=== PATIENT | male | born 1975 | race Caucasian/White ===

== ENCOUNTER 2020-07-25 16:16 | Emergency (ER) | payer OTHER, SELFPAY ==
[2020-07-25 16:30] VITALS: BP 137/83; PULSE 62; RESP 65; TEMP 36.9; O2SAT 100
--- NOTE | 2020-07-25 17:31 | ED.BACK ---
HPI - Back Pain/Injury General Chief Complaint: Back Pain/Injury Stated Complaint: TORE UP MY BACK Time Seen by Provider: 07/25/20 16:51 Source: patient Mode of arrival: ambulatory Limitations: no limitations History of Present Illness HPI Narrative: Patient is a 45-year-old male who presents to emergency department for evaluation of low back pain status post lifting boxes and developing low back pain across the lumbar region patient notes aching pain does not radiate made worse with activity and movement denies other complaints has not taken anything for his symptoms Related Data Allergies Allergy/AdvReac Type Severity Reaction Status Date / Time Penicillins Allergy Mild Verified 06/10/17 21:27 Review of Systems Review of Systems: All systems reviewed & are unremarkable except as noted in HPI and below PMFSH Surgical History Surgical History (Updated 07/25/20 @ 17:32 by Chip Roach PA-C) History of tracheostomy Social History Social History (Updated 07/25/20 @ 17:32 by Chip Roach PA-C) Smoking status: Current every day smoker Exam Narrative: Exam Narrative: GENERAL: Well-appearing, well-nourished, and in no acute distress. HEAD: Normocephalic, atraumatic. EYES: PERRLA and EOMI. ENT: Nares clear, no rhinorrhea or epistaxis. Mucous membranes moist. CHEST: Clear to auscultation. No respiratory distress. No wheezes rales or rhonchi HEART: Regular rate and rhythm. No murmur heard. EXTREMITIES: Normal range of motion. No edema. Tenderness across the lumbar spine no deformities noted SKIN: Warm, dry, no rash. NEURO: No focal deficits. Alert and oriented x3. Cranial nerves II through XII grossly intact. Normal speech and gait PSYCH: Normal mood and affect. Course Course Emergency Course: Patient in the room in no distress aware of case findings treatment plan and diagnosis Vital Signs Vital signs: Vital Signs Temperature 98.4 F 07/25/20 16:30 Pulse Rate 62 07/25/20 16:30 Respiratory Rate 65 H 07/25/20 16:30 Blood Pressure 137/83 07/25/20 16:30 Pulse Oximetry 100 07/25/20 16:30 Temperature 98.4 F 07/25/20 16:30 Pulse Rate 62 07/25/20 16:30 Respiratory Rate 65 H 07/25/20 16:30 Blood Pressure 137/83 07/25/20 16:30 Pulse Oximetry 100 07/25/20 16:30 MDM - Back Pain/Injury MDM Narrative Medical decision making narrative: Patients pain is positional in nature and localized to back without signs of cord compression or cauda equina based on neurological exam, skeletal exam and history. No fever or other significant factors to suggest osteomyelitis or spinal epidural abscess. No symptoms or signs to suggest pain is referred from abdominal or / cardiopulmonary sources. No pulsatile masses noted on exam. Patient ambulates with steady gait and is stable for outpatient management given case findings. Discharge Plan Discharge Clinical Impression: Strain of lumbar region Patient Disposition: Home, Self-Care Condition: Stable Instructions: Antibiotic Form, Acute Low Back Pain (ED) Additional Instructions: Medications as needed and prescribed. Limit lifting and bending. You may apply heat or cold to the area as needed. Follow up with your doctor for further care in the next 7 days. Contact your doctor or return to the emergency department if you develop problems with bladder or bowel function, weakness or loss of feeling in one or both of your legs, or any other serious concerns. Prescriptions: New ibuprofen [IBU] 600 mg tablet 600 mg PO QID PRN (Reason: fever or pain) Qty: 7 RF: 0 lidocaine 5 % adhesive patch,medicated 1 patch TOPICAL DAILY Qty: 1 RF: 0 cyclobenzaprine 10 mg tablet 10 mg PO TID PRN (Reason: muscle spasm) Qty: 10 RF: 0 Follow-up/Referrals: Rolly Watkins MD [Primary Care Provider] -
[2020-07-25 17:42] VITALS: PULSE 62; RESP 14
== END 2020-07-25 17:43 | disposition home or self-care (01) ==
PROVIDERS: Emergency Provider Emergency Medicine; PCP Emergency Medicine
DX: S39.012A Strain of muscle, fascia and tendon of lower back, initial encounter (principal); F17.200 Nicotine dependence, unspecified, uncomplicated; X50.0XXA Overexertion from strenuous movement or load, initial encounter
CPT/HCPCS: 99283

== ENCOUNTER 2024-07-31 11:03 | Emergency (ER) | payer SELFPAY ==
--- NOTE | ~2024-07-31 | XR_ITS ---
EXAMINATION: XR forearm LT 2V DATE: 07/31/2024 13:02 INDICATION: Dog bite to the lateral left forearm TECHNIQUE: AP an lateral views of the left forearm were obtained. COMPARISON: none FINDINGS: There is soft tissue swelling about the mid to proximal left forearm. There are several foci of soft tissue gas along the radial and volar aspect of the midforearm and anterior to the elbow joint. This appears relatively superficial on the frontal projection. Bone alignment is normal. No fracture. Join t spaces are normal. No radiopaque foreign bodies. IMPRESSION: 1. Soft tissue gas at the anterior aspect of the mid left forearm and anterior to the elbow. This cou ld be either directly related to the reported dog bite or to secondary infection with necrotizing fas ciitis which is a clinical diagnosis. 2. No osseous abnormality or radiopaque foreign bodies. Reviewed, dictated and finalized at location A. IMPRESSION: 1. Soft tissue gas at the anterior aspect of the mid left forearm and anterior to the elbow. This could be either directly related to the reported dog bite or to secondary infection with necrotizing fasciitis which is a clinical diagnosi s. 2. No osseous abnormality or radiopaque foreign bodies.
[2024-07-31 12:30] VITALS: BP 145/114; PULSE 71; RESP 17; TEMP 36.7; O2SAT 98
--- NOTE | 2024-07-31 14:51 | ED.ANIMALBIT ---
HPI - Animal Bite General Chief Complaint: Animal Bite Stated Complaint: dog bite Time Seen by Provider: 07/31/24 14:26 History of Present Illness HPI narrative: 48-year-old male presents to the emergency department for a dog bite to his left forearm that occurred 3 hours ago. Patient states his dog in his mother's dog or getting into a fight, he attempted to break up the fight and was bit by a dog. He states both dogs are up-to-date on vaccines. His tetanus is up-to-date. Presents with 3 puncture wounds to the left forearm, bleeding is controlled. No other injuries acquired. Related Data Allergies Allergy/AdvReac Type Severity Reaction Status Date / Time Penicillins Allergy Mild Unknown Verified 07/31/24 11:05 Review of Systems Review of Systems: All systems reviewed & are unremarkable except as noted in HPI and below PMFSH Surgical History Surgical History History of tracheostomy Social History Social History Smoking status: Current every day smoker Exam Narrative: GENERAL: Well-appearing, well-nourished, and in no acute distress. HEAD: Normocephalic, atraumatic. ENT: Nares clear, no rhinorrhea or epistaxis. Mucous membranes moist. NECK: Supple. CHEST: Clear to auscultation. No respiratory distress. HEART: Regular rate and rhythm. No murmur heard. Normal peripheral pulses. EXTREMITIES: 2 small puncture wounds to the dorsum of the left forearm without deep structures or foreign bodies visualized, bleeding is controlled. 1 puncture wound to the volar aspect of the forearm Measuring about half a cm with exposed subcutaneous tissue, otherwise no deep structures or foreign bodies visualized. bleeding controlled. Radial pulses 2+. Sensation is Intact. Median, radial and ulnar nerves are intact. SKIN: Warm, dry, no rash. NEURO: No focal deficits. Alert and oriented x3 Course Vital Signs Vital signs: Vital Signs Temperature 98.1 F 07/31/24 12:30 Pulse Rate 71 07/31/24 12:30 Respiratory Rate 17 07/31/24 12:30 Blood Pressure 145/114 H 07/31/24 12:30 Pulse Oximetry 98 07/31/24 12:30 Temperature 98.1 F 07/31/24 12:30 Pulse Rate 71 07/31/24 12:30 Respiratory Rate 17 07/31/24 12:30 Blood Pressure 145/114 H 07/31/24 12:30 Pulse Oximetry 98 07/31/24 12:30 Procedures Laceration Laceration 1: Date: 07/31/24 Time: 15:26 Site: upper extremity Side (If applicable): left Size (cm): 0.3 Description: contaminated and other (puncture) Depth: simple, single layer Pre-repair: wound explored, irrigated and irrigated extensively ====== Skin Level ====== Skin layer closed with: steri strips Number of sutures: 1 ====== Subcutaneous Layer ====== ====== Muscle Layer ====== ====== Tendon Layer ====== Laceration 2: Date: 07/31/24 Time: 15:26 Site: upper extremity Side (If applicable): left Size (cm): 0.3 Description: contaminated and other (Puncture) Depth: simple, single layer Pre-repair: wound explored, irrigated and irrigated extensively ====== Skin Level ====== Skin layer closed with: dermabond Number of sutures: 1 ====== Subcutaneous Layer ====== ====== Muscle Layer ====== ====== Tendon Layer ====== Laceration 3: Date: 07/31/24 Time: 15:27 Site: upper extremity Side (If applicable): left Size (cm): 0.5 Description: other (puncture) Depth: simple, single layer Pre-repair: wound explored, irrigated and irrigated extensively ====== Skin Level ====== Skin layer closed with: dermabond Number of sutures: 1 ====== Subcutaneous Layer ====== ====== Muscle Layer ====== ====== Tendon Layer ====== M
[2024-07-31] MEDS: DOXYCYCLINE HYCLATE 100 MG TABLET PO (15:30)
[2024-07-31 15:35] VITALS: BP 132/80; PULSE 76; RESP 16; TEMP 36.6; O2SAT 100
== END 2024-07-31 15:35 | disposition home or self-care (01) ==
PROVIDERS: Emergency Provider Physician Assistant
DX: S51.852A Open bite of left forearm, initial encounter (principal); W54.0XXA Bitten by dog, initial encounter; F17.200 Nicotine dependence, unspecified, uncomplicated
CPT/HCPCS: 12001; 73090; 99283; A9270

== ENCOUNTER 2025-02-22 06:08 | Emergency (ER) | payer SELFPAY ==
[2025-02-22 06:16] VITALS: BP 147/101; PULSE 94; RESP 20; TEMP 37.1; O2SAT 96
--- NOTE | 2025-02-22 06:24 | ED_ITS ---
HPI - Dental/Oral General Chief complaint: Dental/Oral Stated complaint: right sided facial swelling Time Seen by Provider: 02/22/25 06:11 History of Present Illness HPI Narrative: 49-year-old male presenting to the emergency department for right-sided lower jaw swelling and pain for last month. Patient denies any dental trauma or injury. No tooth pain or sensitivity to ice, heat or sweets. He states that whenever he chews he does have some pain in the right-sided lower of his jaw. Has been taking Tylenol and ibuprofen for the last mall without any relief of symptoms or swelling. Endorses some dryness in his mouth specially in the right side when chewing. No TMJ symptoms. No ear, nose, or throat symptoms. No dental symptoms to his knowledge. He was otherwise in his normal state of health. Related Data Allergies Allergy/AdvReac Type Severity Reaction Status Date / Time Penicillins Allergy Mild Unknown Verified 07/31/24 11:05 Review of Systems Review of Systems: As reviewed above in HPI [facility] Surgical History Surgical History History of tracheostomy Social History Social History Smoking status: Current every day smoker Exam Narrative: GENERAL: [Well-appearing, well-nourished, and in no acute distress.] HEAD: [Normocephalic, atraumatic.] EYES: [PERRLA and EOMI.] ENT: Nares clear, no rhinorrhea or epistaxis. Mucous membranes moist. Right- sided lower jaw swelling with palpable tender salivary duct. No parotid tenderness or inflammation. No overlying skin changes. No lymphadenopathy in the neck. Full range of motion. No trismus or bony jaw tenderness. NECK: Supple. CHEST: Breathing comfortably EXTREMITIES: Normal range of motion. [No edema.] SKIN: Warm, dry, no rash. NEURO: [No focal deficits]. Alert and oriented [x3.] Course Vital Signs Vital signs: Vital Signs Temperature 37.1 C 02/22/25 06:16 Pulse Rate 94 02/22/25 06:16 Respiratory Rate 20 02/22/25 06:16 Blood Pressure 147/101 H 02/22/25 06:16 Pulse Oximetry 96 02/22/25 06:16 Temperature 37.1 C 02/22/25 06:16 Pulse Rate 94 02/22/25 06:16 Respiratory Rate 20 02/22/25 06:16 Blood Pressure 147/101 H 02/22/25 06:16 Pulse Oximetry 96 02/22/25 06:16 MDM - Dental/Oral MDM Narrative Medical decision making narrative: 49-year-old otherwise healthy male presenting to the emergency room with right- sided lower jaw facial pain and swelling. Denies any dental symptoms. Endorses some pain with chewing in the right-sided lower jaw associated with some dryness in his mouth. He has signs and symptoms of sialoadenitis with pain and fullness in the salivary gland distribution on the right lower jaw. No parotid distribution tenderness. No overlying skin changes. No intraoral involvement or tenderness with palpation of the teeth or gum line. No dental disease identified. Patient will be treated with a combination of antibiotics and secretogogues. He was given clindamycin given his allergy to penicillin and instructed on how to treat this on an outpatient basis. He was given referral to ear nose and throat if his symptoms do not improve with conservative management. No indication for laboratory studies or imaging at this time. Patient will return if he has any complications or concerns. Patient expressed understanding of the instructions and safely discharged. Medical Records Attestation: I reviewed the patient's medical records. Discharge Plan Discharge Clinical Impression: Sialoadenitis Patient Disposition: Home Condition: Stable Instructions: Antibiotic Form, Sialoadenitis (ED) Additional Instructions: He have signs and symptoms of site hello denied is which is inflammation versus infection of the salivary duct on the right side of your face. Treatment at this time will be a combination of antibiotics to prevent and treat bacterial infection as well as secreted dogs which take the form of sour candies, lemon juice or anything to help stimulate salivation which you can buy [id number]. Take the prescribed antibiotic as well as Tylenol and ibuprofen for any pain. Follow-up with the hearing aide technician. Return with any emergent concerns. Patient Language: Bulgarian Prescriptions: New clindamycin HCl [Cleocin HCl] 300 mg capsule 300 mg PO Q8H 7 Days Qty: 21 0RF No Action ibuprofen [IBU] 600 mg tablet 600 mg PO QID PRN (Reason: fever or pain) Qty: 7 0RF lidocaine 5 % adhesive patch,medicated 1 patch TOPICAL DAILY Qty: 1 0RF Rx Instructions: leave on most painful area for up to 12 hrs cyclobenzaprine 10 mg tablet 10 mg PO TID PRN (Reason: muscle spasm) Qty: 10 0RF doxycycline monohydrate 100 mg capsule 100 mg PO BID Qty: 14 0RF Follow-up/Referrals: Jose Cardenas MD [Physician] - 1 Week (Sialadenitis) PHYSICIAN,CARE TECH [Primary Care Provider] - Time of Disposition: 06:24
[2025-02-22] MEDS: CLINDAMYCIN HCL 150 MG CAP 300 MG PO (06:32)
== END 2025-02-22 06:38 | disposition home or self-care (01) ==
LOC: ANHED 06:28
PROVIDERS: Emergency Provider Student in an Organized Health Care Education/Training Program
DX: K11.20 Sialoadenitis, unspecified (principal); F17.200 Nicotine dependence, unspecified, uncomplicated
CPT/HCPCS: 99283

== ENCOUNTER 2025-02-25 18:57 | Inpatient (IN) | payer SELFPAY ==
--- NOTE | ~2025-02-25 | CT_ITS ---
EXAMINATION: CT facial bones w con DATE: 02/25/2025 21:09 INDICATION: submandibular swelling . TECHNIQUE: Computed tomography (CT) of the facial bones and maxillofacial region was performed withou t intravenous contrast. Automated exposure control and iterative reconstruction technique were employ ed. The dose-length product was 386.62 mGy-cm. COMPARISON: None. FINDINGS: Soft Tissues: 1.0 x 3.0 cm rim-enhancing fluid collection along the medial surface of the right lucian ible, with a 7 mm diameter, rim-enhancing tubular extension running medially in the submandibular sof t tissues. Normal bilateral submandibular glands. Enlarged submandibular lymph node to the right of m idline with a hypodense center. Facial bones: No acute fracture. No lytic or blastic process. The bilateral mandibular condyles are dislocated anteriorly, with pseudoarthrosis formation Eyes: The globes are intact. The soft tissue planes of the orbits are maintained. Paranasal Sinuses: Mild bilateral inferior frontal and ethmoid mucosal thickening, the remaining aer ated spaces are clear. Foreign Bodies: No radiopaque foreign bodies. Other Findings: Multifocal dental caries. Periodontal disease affecting a left mandibular molar. Left frontotemporal encephalomalacia. IMPRESSION: 1.0 x 3.0 cm soft tissue abscess along the medial aspect of the right mandible, with extension into t he submandibular/sublingual soft tissues. No definite cortical breakthrough to suggest odontogenic or igin. Enlarged submandibular gland to the right of midline, with a hypodense center that may also represent a small focal abscess. 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 Reviewed, dictated and finalized at location K. IMPRESSION: 1.0 x 3.0 cm soft tissue abscess along the medial aspect of the right mandible, with extension into the submandibular/sublingual soft tissues. No definite cor tical breakthrough to suggest odontogenic origin. Enlarged submandibular gland to the right of midline, with a hypodense center t hat may also represent a small focal abscess. Incidental findings suggestive of chronic mandibular dislocation with pseudarth rosis.
[2025-02-25 18:59] VITALS: BP 140/95; PULSE 83; RESP 18; TEMP 36.5; O2SAT 99
[2025-02-25] MEDS: SODIUM CHLORIDE 0.9% IV 1,000 ML 999 ML IV CONT (20:26)
[2025-02-25 20:30] VITALS: PULSE 73
[2025-02-25 20:34] LABS: Basophils Absolute Auto 0.1 K/mm3 (0.0-0.1); Basophils Percent Auto 0.6 % (0.2-1.2); Eosinophils Absolute Auto 0.1 K/mm3 (0-0.3); Eosinophils Percent Auto 0.7 % (0-4.4); Hematocrit 46.7 % (42.0-52.0); Hemoglobin 15.4 g/dL (14.0-18.0); Immature Granulocyte Absolute 0.05 K/mm3 (0.00-0.031); Immature Granulocyte Percent A 0.4 % (0-0.5); Lymphocytes Absolute Auto 1.24 K/mm3 (0.9-3.2); Mean Corpuscular Hemoglobin 31.8 pg (26-34); Mean Corpuscular Volume 96.3 fl (80-100); Mean Platelet Volume 9.9 fl (7.4-10.4); Monocytes Absolute Auto 1.3 K/mm3 (0.1-0.6); Monocytes Percent Auto 10.4 % (2.6-8.5); Neutrophils Absolute Auto 9.7 K/mm3 (1.3-6.7); Neutrophils Percent Auto 77.9 % (45.5-73.1); Platelet Count Result 388 k/mm3 (150-375); Red Blood Count 4.85 M/mm3 (4.6-6.20); Red Cell Distribution Width 13.2 % (11.5-14.5); White Blood Count 12.4 K/mm3 (4.5-10.0)
[2025-02-25 20:42] LABS: Alanine Aminotransferase 31 U/L (6-50); Albumin Level 4.4 g/dL (3.5-5.1); Alkaline Phosphatase 80 U/L (38-126); Anion Gap 10 mmol/L (4-12); Aspartate Amino Transferase 31 U/L (17-59); Bilirubin,Total 0.4 mg/dL (0.2-1.3); Blood Urea Nitrogen 16 mg/dL (9-20); Calcium 9.5 mg/dL (8.4-10.2); Carbon Dioxide 26 mmol/L (22-30); Chloride 109 mmol/L (98-107); Estimated Glomerular Filt Rate > 60; Glucose 100 mg/dL (65-110); Potassium 3.9 mmol/L (3.4-5.0); Sodium 145 mmol/L (137-145)
--- NOTE | 2025-02-25 21:42 | ED_ITS ---
HPI - General Adult General Chief complaint: Unspecified Stated complaint: jaw pain seen here 3 days ago Time Seen by Provider: 02/25/25 19:56 History of Present Illness HPI narrative: Patient is a 49-year-old gentleman who presents emergency department chief complaint of swelling to the right lower mandible patient states he was seen in the emergency department several days ago and diagnosed with solid itis. Patient has been taking oral antibiotics without improvement patient states it is exquisitely painful and reports the swelling has gotten worse patient denies shortness of breath denies stridor Related Data Allergies Allergy/AdvReac Type Severity Reaction Status Date / Time Penicillins Allergy Mild Unknown Verified 02/25/25 18:58 Review of Systems 2 Review of Systems: A 10 system review of systems was completed on the patient and is negative except for what is stated in the HPI. Nursing and ancillary documentation was reviewed. [facility] Surgical History Surgical History History of tracheostomy Social History Social History Smoking status: Current every day smoker Exam 2 Narrative: GENERAL: Well-appearing, well-nourished, and in no acute distress. HEAD: Normocephalic, atraumatic. EYES: PERRLA and EOMI. ENT: Nares clear, no rhinorrhea or epistaxis. Mucous membranes moist. The swelling in the submandibular area there is tenderness in the sublingual area on the right side there is no crepitance or fluctuance there NECK: Supple. CHEST: Clear to auscultation. No respiratory distress. HEART: Regular rate and rhythm. No murmur heard. Normal peripheral pulses. ABDOMEN: Soft, nontender, nondistended, normal active bowel sounds. EXTREMITIES: Normal range of motion. No edema. SKIN: Warm, dry, no rash. NEURO: No focal deficits. Alert and oriented x3. PSYCH: Normal mood and affect. Course Vital Signs Vital signs: Vital Signs Temperature 36.5 C 02/25/25 18:59 Pulse Rate 83 02/25/25 18:59 Respiratory Rate 18 02/25/25 18:59 Blood Pressure 140/95 H 02/25/25 18:59 Pulse Oximetry 99 02/25/25 18:59 Oxygen Delivery Room Air 02/25/25 18:59 Temperature 36.5 C 02/25/25 18:59 Pulse Rate 73 02/25/25 20:30 Respiratory Rate 18 02/25/25 18:59 Blood Pressure 140/95 H 02/25/25 18:59 Pulse Oximetry 99 02/25/25 18:59 Oxygen Delivery Room Air 02/25/25 18:59 Medical Decision Making MDM Narrative Medical decision making narrative: Differential diagnosis includes abscess, sialadenitis, trench mouth, Federico's angina There is no crepitance present on exam. Patient has an intact airway CT scan of the facial bones with IV contrast showed evidence of a 1 x 3 cm abscess the patient was started on vancomycin and IV clindamycin as he is allergic to penicillin The case was discussed with ENT who recommended IV antibiotics and admission to the hospitalist service and the patient has no improvement may need incision and drainage Vital Signs Vital Signs: Vital Signs Temperature 36.5 C 02/25/25 18:59 Pulse Rate 83 02/25/25 18:59 Respiratory Rate 18 02/25/25 18:59 Blood Pressure 140/95 H 02/25/25 18:59 Pulse Oximetry 99 02/25/25 18:59 Oxygen Delivery Room Air 02/25/25 18:59 Temperature 36.5 C 02/25/25 18:59 Pulse Rate 73 02/25/25 20:30 Respiratory Rate 18 02/25/25 18:59 Blood Pressure 140/95 H 02/25/25 18:59 Pulse Oximetry 99 02/25/25 18:59 Oxygen Delivery Room Air 02/25/25 18:59 Lab Data 02/25/25 20:25 02/25/25 20:25 Labs: Lab Results 02/25/25 Range/Units 20:25 WBC 12.4 H (4.5-10.0) K/mm3 RBC 4.85 (4.6-6.20) M/mm3 Hgb 15.4 (14.0-18.0) g/dL Hct 46.7 (42.0-52.0) % MCV 96.3 (80-100) fl MCH 31.8 (26-34) pg MCHC 33.0 (32-36) g/dl RDW 13.2 (11.5-14.5) % Plt Count 388 H (150-375) k/mm3 MPV 9.9 (7.4-10.4) fl Immature Gran % (Auto) 0.4 (0-0.5) % Neut % (Auto) 77.9 H (45.5-73.1) % Lymph % (Auto) 10.0 L (18.3-44.2) % Page % (Auto) 10.4 H (2.6-8.5) % Eos % (Auto) 0.7 (0-4.4) % Baso % (Auto) 0.6 (0.2-1.2) % Lymph # (Auto) 1.24 (0.9-3.2) K/mm3 Page # (Auto) 1.3 H (0.1-0.6) K/mm3 Eos # (Auto) 0.1 (0-0.3) K/mm3 Baso # (Auto) 0.1 (0.0-0.1) K/mm3 Abs Immat Gran (auto) 0.05 H (0.00-0.031) K/mm3 Absolute Neuts (auto) 9.7 H (1.3-6.7) K/mm3 Absolute Nucleated RBC 0.000 (0.0-0.012) K/mm3 Nucleated RBC % 0.0 (0.0-0.2) % Sodium 145 (137-145) mmol/L Potassium 3.9 (3.4-5.0) mmol/L Chloride 109 H (98-107) mmol/L Carbon Dioxide 26 (22-30) mmol/L Anion Gap 10 (4-12) mmol/L BUN 16 (9-20) mg/dL Creatinine 0.92 (0.7-1.3) mg/dL Estim Creat Clear Calc Not Reportable Estimated GFR > 60 (59 - ) Glucose 100 (65-110) mg/dL Lactic Acid 1.0 (0.7-2.0) mmol/L Calcium 9.5 (8.4-10.2) mg/dL Total Bilirubin 0.4 (0.2-1.3) mg/dL AST 31 (17-59) U/L ALT 31 (6-50) U/L Alkaline Phosphatase 80 (38-126) U/L Total Protein 8.0 (6.3-8.2) g/dL Albumin 4.4 (3.5-5.1) g/dL Discharge Plan Discharge Clinical Impression: Abscess of submandibular gland Patient Disposition: Still a Patient Condition: Stable Patient Language: [place] African Prescriptions: No Action ibuprofen [IBU] 600 mg tablet 600 mg PO QID PRN (Reason: fever or pain) Qty: 7 0RF lidocaine 5 % adhesive patch,medicated 1 patch TOPICAL DAILY Qty: 1 0RF Rx Instructions: leave on most painful area for up to 12 hrs cyclobenzaprine 10 mg tablet 10 mg PO TID PRN (Reason: muscle spasm) Qty: 10 0RF doxycycline monohydrate 100 mg capsule 100 mg PO BID Qty: 14 0RF clindamycin HCl [Cleocin HCl] 300 mg capsule 300 mg PO Q8H 7 Days Qty: 21 0RF Follow-up/Referrals: PHYSICIAN,TOWER EQUIPMENT INSTALLER [Primary Care Provider] - Time of Disposition: 21:50
--- NOTE | 2025-02-25 21:53 | PC.NURSE ---
contacted pharmacy to request abx. [facility] aware and will send.
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
[2025-02-25 22:14] VITALS: BP 151/90; PULSE 90; RESP 16; TEMP 37.4; O2SAT 97
[2025-02-25] MEDS: CLINDAMYCIN 900 MG/D5W 50 ML 900 MG/50 ML PIGGYBACK 50 MG IVPB (22:35)
--- NOTE | 2025-02-25 22:35 | PC.NURSE ---
blood cultures drawn prior to abx started by mattie Franco
[2025-02-25 22:55] VITALS: BMI 23.5
[2025-02-25] MEDS: SODIUM CHLORIDE 0.9% IV 1,000 ML 125 ML IV CONT (23:06)
[2025-02-25] MEDS: MORPHINE SULFATE (*CRX) 2 MG/ML INJ IV PUSH (23:15)
[2025-02-25] MEDS: VANCOMYCIN 1,750 MG/NS 500 ML 1,750 MG/500 ML BAG 250 MG IVPB (23:21)
[2025-02-25] MEDS: NICOTINE (*PBKC) 21 MG PATCH 1 PATCH TRANSDERM (23:53)
[2025-02-26] VITALS (12 sets, daily range): BP systolic 131–149; BP diastolic 72–91; PULSE 70–90; RESP 16–20; TEMP 36–37.1; O2SAT 94–100
[2025-02-26] MEDS: dexAMETHasone SOD PHOS INJ 10 MG/ML 1 ML VIAL IV PUSH (01:00)
[2025-02-26] MEDS: IPRATROPIUM 0.5 MG/ALBUTEROL SULFATE 2.5 MG AMPUL.NEB 3 ML INHALATION ×4 (01:48→20:47)
[2025-02-26] MEDS: CLINDAMYCIN 600 MG/D5W 50 ML 600 MG/50 ML PIGGYBACK 100 MG IVPB (05:34)
[2025-02-26 06:22] LABS: Basophils Percent Auto 0.3 % (0.2-1.2); Eosinophils Percent Auto 0.1 % (0-4.4); Hematocrit 46.5 % (42.0-52.0); Hemoglobin 14.9 g/dL (14.0-18.0); Immature Granulocyte Absolute 0.06 K/mm3 (0.00-0.031); Immature Granulocyte Percent A 0.5 % (0-0.5); Lymphocytes Absolute Auto 0.61 K/mm3 (0.9-3.2); Lymphocytes Percent Auto 5.5 % (18.3-44.2); Mean Corpuscular Hemoglobin 31.6 pg (26-34); Mean Corpuscular Volume 98.5 fl (80-100); Mean Platelet Volume 10.4 fl (7.4-10.4); Monocytes Absolute Auto 0.2 K/mm3 (0.1-0.6); Monocytes Percent Auto 1.4 % (2.6-8.5); Neutrophils Absolute Auto 10.3 K/mm3 (1.3-6.7); Neutrophils Percent Auto 92.2 % (45.5-73.1); Platelet Count Result 376 k/mm3 (150-375); Red Blood Count 4.72 M/mm3 (4.6-6.20); Red Cell Distribution Width 13.2 % (11.5-14.5); White Blood Count 11.1 K/mm3 (4.5-10.0)
[2025-02-26 06:37] LABS: Lactic Acid Reflex 1.1 mmol/L (0.7-2.0)
[2025-02-26 06:38] LABS: Anion Gap 11 mmol/L (4-12); Blood Urea Nitrogen 11 mg/dL (9-20); Calcium 8.8 mg/dL (8.4-10.2); Carbon Dioxide 20 mmol/L (22-30); Chloride 112 mmol/L (98-107); Estimated CRCL calculation 95 ml/min; Estimated Glomerular Filt Rate > 60; Glucose 117 mg/dL (65-110); Potassium 3.8 mmol/L (3.4-5.0); Sodium 143 mmol/L (137-145)
[2025-02-26] MEDS: NICOTINE (*PBKC) 21 MG PATCH 1 PATCH TRANSDERM (08:16)
[2025-02-26] MEDS: LIDO 1%/EPINEPHRINE 1:100,000 20 ML VIAL 3 ML INFILTRATE (09:26)
[2025-02-26] MEDS: BENZOCAINE 20% DENTAL GEL 9 GM TUBE 1 APPLIC MUCOUS MEM (09:26)
[2025-02-26 09:28] LABS: CRP 6.8 mg/dL (<1.0)
--- NOTE | 2025-02-26 09:50 | P.PNIM_ITS ---
Progress Note: A&P Assessment and Plan (1) Abscess of submandibular gland: Code(s): K11.3 - Abscess of salivary gland Status: Acute Assessment and Plan: * Patient failed outpatient clindamycin therapy. * Patient is not meeting sepsis criteria. * CT scan facial bones showing 1 cm x 3 cm soft tissue abscess along right mandible extending into the submandibular soft tissues. * IV antibiotics of clindamycin 600 mg Q 8 hours and vancomycin as dosed per pharmacy ordered. * Consult ENT has been placed. * P.r.n. pain medication with morphine 2 mg Q 2 p.r.n., Tylenol q.4 p.r.n. and antiemetics of Zofran Q 4 p.r.n. ordered. (2) Emphysema lung: Code(s): J43.9 - Emphysema, unspecified Status: Chronic Assessment and Plan: * Patient without any current treatment as he does not have insurance. * continue bronchodilators (3) Nicotine dependence: Code(s): F17.200 - Nicotine dependence, unspecified, uncomplicated Status: Chronic Assessment and Plan: * patient counseled for 5 minutes regarding nicotine cessation to allow for healing * nicotine patch ordered Plan DVT prophylaxis on Sq Lovenox Subjective Date/time seen: 02/26/25 09:50 Interval history: Comfortable at bedside Awaiting ENT eval Review of Systems Review of Systems: All systems reviewed & are unremarkable except as noted in HPI and below Exam Const: General: comfortable and no acute distress Other: Comfortable and nontoxic appearing male patient lying supine on stretcher at this time in no acute distress. HENMT: Face/Nose/Sinus: Normal nares present Mouth: Yes moist mucous membranes Other: Poor dental hygiene evident. There are no signs however of intraoral abscess, erythema or lesion. Neck: Neck: supple and no JVD Lymphatic: lymphadenopathy not noted Other: I am unable to appreciate any submandibular or cervical lymphadenopathy. Resp: Effort & Inspection: normal respiratory effort Auscultation: wheezes ( Expiratory and expiratory wheezing in all mckinley) Other: prolonged expiratory phase present. Cardio: Rate: regular rate Rhythm: regular rhythm Heart sounds: no gallops, no murmurs and no rubs GI: Auscultation: normal bowel sounds Skin: General skin exam: normal color, no rashes or lesions noted and no erythema Wounds: no wounds Neuro: General: gait normal Speech: normal speech Motor exam (neuro): 5/5 motor strength present throughout Sensory Exam: normal sensation Extrem: General: normal to inspection, no edema and no pedal edema Other: Full active range of motion of all extremities. Psych: Mental Status: mental status grossly normal Objective Data Vital Signs Vital Signs: Vital Signs - 24 hr 02/25/25 18:59 02/25/25 20:30 02/25/25 22:14 Temperature 97.7 F 99.4 F Pulse Rate 83 73 90 Respiratory Rate 18 16 Blood Pressure 140/95 H 151/90 H Pulse Oximetry 99 97 Oxygen Delivery Room Air Fraction of Inspired Oxygen 02/26/25 01:16 02/26/25 01:53 02/26/25 06:00 Temperature 98.8 F Pulse Rate 90 85 89 Respiratory Rate 16 20 18 Blood Pressure 145/72 H Pulse Oximetry 97 100 Oxygen Delivery Room Air Fraction of Inspired Oxygen 02/26/25 07:43 02/26/25 07:43 02/26/25 07:50 Temperature Pulse Rate 78 81 Respiratory Rate 20 20 Blood Pressure Pulse Oximetry 94 Oxygen Delivery Room Air Fraction of Inspired Oxygen 21 Intake/Output Intake/Output: Intake & Output 02/23/25 02/24/25 02/25/25 02/26/25 23:59 23:59 23:59 23:59 Intake Total 1050 1550 Balance 1050 1550 Meds/Results Medications: Active Medications Generic Name Dose Route Start Last Admin Trade Name Freq PRN Reason Stop Dose Admin Acetaminophen 650 mg 02/25/25 21:50 Acetaminophen 325 Mg Tablet PO Q4H PRN Mild Pain (1-3) or Fever Albuterol 2.5 mg 02/25/25 22:21 Albuterol Sulfate Neb 2.5 Mg/3 Ml Inh INHALATION Q4HRT PRN Wheezing Albuterol/Ipratropium 3 ml 02/26/25 02:00 02/26/25 07:43 Ipratropium 0.5 Mg/Albuterol Sulfate 2.5 Mg Ampul.Neb 3 Ml INHALATION 3 ml Q6HRT AGUSTIN Administration Sodium Chloride 1,000 mls @ 125 mls/hr 02/25/25 21:50 02/26/25 08:41 Normal Saline Iv IV CONT Infused .Q8H AGUSTIN Infusion Vancomycin HCl 1,250 mg in 250 mls @ 166.667 mls/hr 02/26/25 11:00 Vancomycin 1,250 Mg/Ns 250 Ml IVPB Q12H AGUSTIN Clindamycin Phosphate 900 mg in 50 mls @ 50 mls/hr 02/26/25 14:00 Cleocin 900 Mg/D5w 50 Ml IVPB Q8H AGUSTIN Morphine Sulfate 2 mg 02/25/25 21:50 02/25/25 23:15 Morphine Sulfate (*Crx) 2 Mg/Ml Inj IV PUSH 2 mg Q2H PRN Administration Pain Rated 7-10 Nicotine 1 patch 02/26/25 09:00 02/26/25 08:16 Nicotine (*Pbkc) 21 Mg Patch TRANSDERM 1 patch DAILY AGUSTIN Administration Ondansetron HCl 4 mg 02/25/25 21:50 Ondansetron Inj 4 Mg/2 Ml Vial IV PUSH Q4H PRN Nausea Radiology Results: ITS Impressions Face CT 02/25/25 21:16 IMPRESSION: 1.0 x 3.0 cm soft tissue abscess along the medial aspect of the right mandible, with extension into the submandibular/sublingual soft tissues. No definite cortical breakthrough to suggest odontogenic origin. Enlarged submandibular gland to the right of midline, with a hypodense center that may also represent a small focal abscess. 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 Labs Labs: Laboratory Results - last 24 hr 02/25/25 02/26/25 20:25 05:34 WBC 12.4 H 11.1 H RBC 4.85 4.72 Hgb 15.4 14.9 Hct 46.7 46.5 MCV 96.3 98.5 MCH 31.8 31.6 MCHC 33.0 32.0 RDW 13.2 13.2 Plt Count 388 H 376 H MPV 9.9 10.4 Immature Gran % (Auto) 0.4 0.5 Neut % (Auto) 77.9 H 92.2 H Lymph % (Auto) 10.0 L 5.5 L Cannon % (Auto) 10.4 H 1.4 L Eos % (Auto) 0.7 0.1 Baso % (Auto) 0.6 0.3 Lymph # (Auto) 1.24 0.61 L Cannon # (Auto) 1.3 H 0.2 Eos # (Auto) 0.1 0.0 Baso # (Auto) 0.1 0.0 Abs Immat Gran (auto) 0.05 H 0.06 H Absolute Neuts (auto) 9.7 H 10.3 H Absolute Nucleated RBC 0.000 0.000 Nucleated RBC % 0.0 0.0 Sodium 145 143 Potassium 3.9 3.8 Chloride 109 H 112 H Carbon Dioxide 26 20 L Anion Gap 10 11 BUN 16 11 D Creatinine 0.92 0.77 Estim Creat Clear Calc Not Reportable 95 Estimated GFR > 60 > 60 Glucose 100 117 H Lactic Acid 1.0 1.1 Calcium 9.5 8.8 Total Bilirubin 0.4 AST 31 ALT 31 Alkaline Phosphatase 80 C-Reactive Protein 6.8 H Total Protein 8.0 Albumin 4.4 Quality VTE Prophylaxis VTE prophylaxis: mechanical ordered
[2025-02-26] MEDS: SODIUM CHLORIDE 0.9% IV 1,000 ML 125 ML IV CONT (09:53)
[2025-02-26] MEDS: MORPHINE SULFATE (*CRX) 2 MG/ML INJ IV PUSH ×2 (09:53→15:41)
--- NOTE | 2025-02-26 10:21 | P.CONS_ITS ---
Assessment and Plan Assessment and plan (1) Neck abscess: Code(s): L02.11 - Cutaneous abscess of neck Status: Acute (2) Abscess of submandibular gland: Code(s): K11.3 - Abscess of salivary gland Status: Acute (3) Abscess, periapical: Code(s): K04.7 - Periapical abscess without sinus Status: Acute (4) Dental infection: Code(s): K04.7 - Periapical abscess without sinus Status: Acute (5) Abscess or cellulitis, oral soft tissue: Code(s): K12.2 - Cellulitis and abscess of mouth Status: Acute Plan 49-year-old male with right-sided submandibular abscess, right side floor of mouth abscess, right side periapical abscess -incision and drainage through the mouth was done. -culture swab was taken for aerobic. -continue antibiotics including clindamycin 900 mg IV t.i.d.. -if there is no improvement in symptoms clinically or persistently elevated white blood cell count and CRP then we will order another CT scan neck with contrast in 48 hours -I will re-evaluate the patient tomorrow afternoon(02/27/25) HPI Data of Consult Date/Time: 02/26/25 10:21 Requesting Physician: Kendall Andrews MD Primary Care Provider: [employer] PHYSICIAN Consult Narrative Reason for consult: Right neck abcess Narrative: Arjun Burgess is a 49 year old male admitted for chief complaint of right neck abscess Patient was seen in bed and had right side tender neck ,but is able to open the mouth freely without restriction . Patient has been taking oral antibiotics without improvement before admission. Review of Systems 2 Review of Systems: Patient has mild pain in the right upper neck Patient denies having any bad teeth. Patient has no insurance and has not seen dentist since many years. Patient never complained of any problem recently. All systems reviewed & are unremarkable except as noted in HPI and below Constitutional: Constitutional: Reports as per HPI Eyes: Eyes: Reports as per HPI ENT: Reports system reviewed and no additional complaints, except as documented and Reports as per HPI Respiratory: Respiratory: Reports as per HPI Gastrointestinal: Gastrointestinal: Reports as per HPI [facility] Past Medical History Medical History (Updated 02/26/25 @ 15:45 by Yuly Go MD) Abscess or cellulitis, oral soft tissue Dental infection Nicotine dependence Emphysema lung Surgical History Surgical History History of tracheostomy Social History Social History Smoking status: Current every day smoker Tobacco type: cigarettes Second hand tobacco smoke exposure: No Alcohol intake: former Substance use: current Substance use type: marijuana Do You Feel Safe in your Home?: Yes Lack of Transportation: No Lack of Food: Never True Current Housing: I Have Housing Concerned About Future Housing: No Difficulty Paying Gas/Electric Bills: No Difficulty Paying for Meds: No Currently Unemployed: No Education: Grade School Difficulty w/ Childcare or Family Care: No Spiritual care concerns: No Meds Home Medications and Allergies Home Medications ?Medication ?Instructions ?Recorded ?Confirmed ?Type cyclobenzaprine 10 mg tablet 10 mg PO TID PRN muscle spasm #10 07/25/20 02/26/25 Rx tabs ibuprofen 600 mg tablet (IBU) 600 mg PO QID PRN fever or pain #7 07/25/20 02/26/25 Rx tabs lidocaine 5 % topical patch 1 patch topical DAILY #1 ea 07/25/20 02/26/25 Rx clindamycin HCl 300 mg capsule 300 mg PO Q8H 7 days #21 caps 02/22/25 02/26/25 Rx (Cleocin HCl) Allergies Allergy/AdvReac Type Severity Reaction Status Date / Time Penicillins Allergy Mild Unknown Verified 02/25/25 18:58 Vital Signs Vital Signs - 24 hr 02/25/25 18:59 02/25/25 20:30 02/25/25 22:14 Temperature 36.5 C 37.4 C Pulse Rate 83 73 90 Respiratory Rate 18 16 Blood Pressure 140/95 H 151/90 H Pulse Oximetry 99 97 Oxygen Delivery Room Air Fraction of Inspired Oxygen 02/26/25 01:16 02/26/25 01:53 02/26/25 06:00 Temperature 37.1 C Pulse Rate 90 85 89 Respiratory Rate 16 20 18 Blood Pressure 145/72 H Pulse Oximetry 97 100 Oxygen Delivery Room Air Fraction of Inspired Oxygen 02/26/25 07:43 02/26/25 07:43 02/26/25 07:50 Temperature Pulse Rate 78 81 Respiratory Rate 20 20 Blood Pressure Pulse Oximetry 94 Oxygen Delivery Room Air Fraction of Inspired Oxygen 21 Exam 2 Const: General: cooperative and healthy appearing HENMT: Head: normal to inspection, normocephalic and atraumatic Head images: 1. Right-sided upper neck tenderness Ears: external ears normal and EAC's normal Face/Nose/Sinus: Normal external nose present and Normal nares present Face and sinus: normal facial exam M outh: Yes lip normal and Yes other Teeth and gingiva: abnormal tooth and associated gingiva Teeth image: 1. Pus with swelling of the gum over the first molar Throat: posterior oropharynx normal Eyes: General: appearance normal, both eyes and all related structures Neck: Neck: normal visual inspection Resp: Effort & Inspection: normal respiratory effort and able to speak in complete sentences Results Labs 02/26/25 05:34 02/26/25 05:34 Labs: Short CBC 02/25/25 02/26/25 Range/Units 20:25 05:34 WBC 12.4 H 11.1 H (4.5-10.0) K/mm3 Hgb 15.4 14.9 (14.0-18.0) g/dL Hct 46.7 46.5 (42.0-52.0) % Plt Count 388 H 376 H (150-375) k/mm3 BMP 02/25/25 02/26/25 20:25 05:34 Sodium 145 143 Potassium 3.9 3.8 Chloride 109 H 112 H Carbon Dioxide 26 20 L BUN 16 11 D Creatinine 0.92 0.77 Glucose 100 117 H Calcium 9.5 8.8 Liver Function 02/25/25 Range/Units 20:25 Total Bilirubin 0.4 (0.2-1.3) mg/dL AST 31 (17-59) U/L ALT 31 (6-50) U/L Alkaline Phosphatase 80 (38-126) U/L Albumin 4.4 (3.5-5.1) g/dL
--- NOTE | 2025-02-26 10:42 | W.PM.PROC2 ---
Procedure Note - Detailed Date of Procedure 02/26/25 Pre-op Diagnosis Floor of mouth abcess Post-op Diagnosis Same Procedure Performed Incision and drainage of floor of mouth abscess under local anesthesia bedside Surgeon Yuly Go MD Anesthesia Local (1% lidocaine with epinephrine 2 mL was injected) Indications Abscess of floor of mouth Description of Procedure After getting written consent of the patient and explaining the risks of the procedure, I have injected 1 mL in the neighboring area the gum of the right lower first molar tooth and the floor of mouth . #15 blade was used to incise the gum and neighboring mucosa ,I dissected over periosteum, bimanual massage of the gland I got around 2 mL of pus that was sent for culture. Estimated Blood Loss 1 (ml) Drains No Packing No Complications None Condition Stable Disposition No change [facility] Billing Surgery - Charge Forward: Surgery Billing (CPT Code 94836)
[2025-02-26] MEDS: VANCOMYCIN 1,250 MG/NS 250 ML 1,250 MG/250 ML BAG 166.67 MG IVPB ×2 (12:08→23:42)
[2025-02-26] MEDS: CLINDAMYCIN 900 MG/D5W 50 ML 900 MG/50 ML PIGGYBACK 50 MG IVPB ×2 (14:47→22:28)
[2025-02-27] VITALS (14 sets, daily range): BP systolic 125–147; BP diastolic 79–88; PULSE 68–90; RESP 16–20; TEMP 36.1–36.9; O2SAT 96–100
[2025-02-27] MEDS: SODIUM CHLORIDE 0.9% IV 1,000 ML 125 ML IV CONT ×3 (00:03→20:26)
[2025-02-27] MEDS: MORPHINE SULFATE (*CRX) 2 MG/ML INJ IV PUSH ×4 (00:04→17:19)
[2025-02-27] MEDS: IPRATROPIUM 0.5 MG/ALBUTEROL SULFATE 2.5 MG AMPUL.NEB 3 ML INHALATION ×4 (02:16→20:36)
[2025-02-27] MEDS: CLINDAMYCIN 900 MG/D5W 50 ML 900 MG/50 ML PIGGYBACK 50 MG IVPB ×3 (06:06→22:11)
[2025-02-27 06:07] LABS: Basophils Percent Auto 0.4 % (0.2-1.2); Eosinophils Absolute Auto 0.1 K/mm3 (0-0.3); Eosinophils Percent Auto 0.9 % (0-4.4); Hematocrit 38.3 % (42.0-52.0); Hemoglobin 12.9 g/dL (14.0-18.0); Immature Granulocyte Absolute 0.03 K/mm3 (0.00-0.031); Immature Granulocyte Percent A 0.3 % (0-0.5); Lymphocytes Absolute Auto 2.53 K/mm3 (0.9-3.2); Lymphocytes Percent Auto 27.8 % (18.3-44.2); Mean Corpuscular HGB Conc 33.7 g/dl (32-36); Mean Corpuscular Hemoglobin 31.9 pg (26-34); Mean Corpuscular Volume 94.8 fl (80-100); Mean Platelet Volume 10.3 fl (7.4-10.4); Monocytes Absolute Auto 0.8 K/mm3 (0.1-0.6); Monocytes Percent Auto 8.2 % (2.6-8.5); Neutrophils Absolute Auto 5.7 K/mm3 (1.3-6.7); Neutrophils Percent Auto 62.4 % (45.5-73.1); Platelet Count Result 369 k/mm3 (150-375); Red Blood Count 4.04 M/mm3 (4.6-6.20); Red Cell Distribution Width 13.5 % (11.5-14.5); White Blood Count 9.1 K/mm3 (4.5-10.0)
[2025-02-27 06:32] LABS: Alanine Aminotransferase 21 U/L (6-50); Albumin Level 3.4 g/dL (3.5-5.1); Alkaline Phosphatase 59 U/L (38-126); Anion Gap 7 mmol/L (4-12); Aspartate Amino Transferase 21 U/L (17-59); Bilirubin,Total 0.5 mg/dL (0.2-1.3); Blood Urea Nitrogen 14 mg/dL (9-20); CRP 3.7 mg/dL (<1.0); Calcium 8.2 mg/dL (8.4-10.2); Carbon Dioxide 23 mmol/L (22-30); Chloride 113 mmol/L (98-107); Estimated CRCL calculation 100 ml/min; Estimated Glomerular Filt Rate > 60; Glucose 84 mg/dL (65-110); Sodium 143 mmol/L (137-145)
[2025-02-27] MEDS: ACETAMINOPHEN 325 MG TABLET 650 MG PO (08:16)
[2025-02-27] MEDS: NICOTINE (*PBKC) 21 MG PATCH 1 PATCH TRANSDERM (08:18)
[2025-02-27 10:36] LABS: Vancomycin Trough 10.1 ug/mL (10.0-20.0)
[2025-02-27] MEDS: VANCOMYCIN 1,750 MG/NS 500 ML 1,750 MG/500 ML BAG 250 MG IVPB ×2 (11:20→23:21)
[2025-02-27] MEDS: POTASSIUM CHLORIDE 20 MEQ ER TABLET 40 MEQ PO (11:21)
--- NOTE | 2025-02-27 13:01 | P.PNIM_ITS ---
Progress Note: A&P Assessment and Plan (1) Abscess of submandibular gland: Code(s): K11.3 - Abscess of salivary gland Status: Acute Assessment and Plan: * CT scan facial bones showing 1 cm x 3 cm soft tissue abscess along right mandible extending into the submandibular soft tissues. * IV antibiotics of clindamycin 600 mg Q 8 hours and vancomycin as dosed per pharmacy ordered. s/p I and D Awaiting culture PRN pain control PRN pain control (2) Emphysema lung: Code(s): J43.9 - Emphysema, unspecified Status: Chronic Assessment and Plan: * Patient without any current treatment as he does not have insurance. * continue bronchodilators (3) Nicotine dependence: Code(s): F17.200 - Nicotine dependence, unspecified, uncomplicated Status: Chronic Assessment and Plan: * patient counseled for 5 minutes regarding nicotine cessation to allow for healing * nicotine patch Plan DVT prophylaxis on Sq Lovenox Subjective Date/time seen: 02/27/25 13:01 Interval history: Comfortable at bedside S/p I and D, culture pending Review of Systems Review of Systems: All systems reviewed & are unremarkable except as noted in HPI and below Exam Const: General: comfortable and no acute distress Other: Comfortable and nontoxic appearing male patient lying supine on stretcher at this time in no acute distress. HENMT: Face/Nose/Sinus: Normal nares present Mouth: Yes moist mucous membranes Other: Poor dental hygiene evident. There are no signs however of intraoral abscess, erythema or lesion. Neck: Neck: supple and no JVD Lymphatic: lymphadenopathy not noted Other: I am unable to appreciate any submandibular or cervical lymphadenopathy. Resp: Effort & Inspection: normal respiratory effort Auscultation: wheezes ( Expiratory and expiratory wheezing in all mckin[place]) Other: prolonged expiratory phase present. Cardio: Rate: regular rate Rhythm: regular rhythm Heart sounds: no gallops, no murmurs and no rubs GI: Auscultation: normal bowel sounds Skin: General skin exam: normal color, no rashes or lesions noted and no erythema Wounds: no wounds Neuro: General: gait normal Speech: normal speech Motor exam (neuro): 5/5 motor strength present throughout Sensory Exam: normal sensation Extrem: General: normal to inspection, no edema and no pedal edema Other: Full active range of motion of all extremities. Psych: Mental Status: mental status grossly normal Objective Data Vital Signs Vital Signs: Vital Signs - 24 hr 02/26/25 13:09 02/26/25 13:09 02/26/25 13:15 Temperature Pulse Rate 73 75 Respiratory Rate 20 20 Blood Pressure Pulse Oximetry 95 Oxygen Delivery Room Air Fraction of Inspired Oxygen 21 02/26/25 14:00 02/26/25 20:00 02/26/25 20:47 Temperature 98.5 F Pulse Rate 81 77 81 Respiratory Rate 16 20 20 Blood Pressure 131/75 Pulse Oximetry 98 98 Oxygen Delivery Room Air Fraction of Inspired Oxygen 21 02/26/25 20:55 02/26/25 22:00 02/27/25 02:16 Temperature 96.8 F L Pulse Rate 77 70 75 Respiratory Rate 20 18 20 Blood Pressure 149/91 H Pulse Oximetry 97 Oxygen Delivery Fraction of Inspired Oxygen 02/27/25 02:24 02/27/25 06:00 02/27/25 08:00 Temperature 97 F L Pulse Rate 75 68 Respiratory Rate 20 18 Blood Pressure 147/88 H Pulse Oximetry 99 96 Oxygen Delivery Room Air Fraction of Inspired Oxygen 02/27/25 08:53 02/27/25 08:55 02/27/25 09:00 Temperature Pulse Rate 69 73 Respiratory Rate 16 16 Blood Pressure Pulse Oximetry 96 Oxygen Delivery Room Air Fraction of Inspired Oxygen Intake/Output Intake/Output: Intake & Output 02/24/25 02/25/25 02/26/25 02/27/25 23:59 23:59 23:59 23:59 Intake Total 1050 2900 1250 Balance 1050 2900 1250 Meds/Results Medications: Active Medications Generic Name Dose Route Start Last Admin Trade Name Freq PRN Reason Stop Dose Admin Acetaminophen 650 mg 02/25/25 21:50 02/27/25 08:16 Acetaminophen 325 Mg Tablet PO 650 mg Q4H PRN Administration Mild Pain (1-3) or Fever Albuterol 2.5 mg 02/25/25 22:21 Albuterol Sulfate Neb 2.5 Mg/3 Ml Inh INHALATION Q4HRT PRN Wheezing Albuterol/Ipratropium 3 ml 02/26/25 02:00 02/27/25 08:53 Ipratropium 0.5 Mg/Albuterol Sulfate 2.5 Mg Ampul.Neb 3 Ml INHALATION 3 ml Q6HRT AGUSTIN Administration Enoxaparin Sodium 40 mg 02/26/25 09:00 02/26/25 10:00 Enoxaparin 40 Mg/0.4 Ml Syringe SUB-Q Not Given DAILY AGUSTIN Sodium Chloride 1,000 mls @ 125 mls/hr 02/25/25 21:50 02/27/25 09:13 Normal Saline Iv IV CONT 125 mls/hr .Q8H AGUSTIN Administration Clindamycin Phosphate 900 mg in 50 mls @ 50 mls/hr 02/26/25 14:00 02/27/25 06:06 Cleocin 900 Mg/D5w 50 Ml IVPB 50 mls/hr Q8H AUGSTIN Administration Vancomycin HCl 1,750 mg in 500 mls @ 250 mls/hr 02/27/25 11:00 02/27/25 11:20 Vancomycin 1,750 Mg/Ns 500 Ml IVPB 250 mls/hr Q12H AGUSTIN Administration Morphine Sulfate 2 mg 02/25/25 21:50 02/27/25 09:13 Morphine Sulfate (*Crx) 2 Mg/Ml Inj IV PUSH 2 mg Q2H PRN Administration Pain Rated 7-10 Nicotine 1 patch 02/26/25 09:00 02/27/25 08:18 Nicotine (*Pbkc) 21 Mg Patch TRANSDERM 1 patch DAILY AGUSTIN Administration Ondansetron HCl 4 mg 02/25/25 21:50 Ondansetron Inj 4 Mg/2 Ml Vial IV PUSH Q4H PRN Nausea Radiology Results: ITS Impressions Face CT 02/25/25 21:16 IMPRESSION: 1.0 x 3.0 cm soft tissue abscess along the medial aspect of the right mandible, with extension into the submandibular/sublingual soft tissues. No definite cortical breakthrough to suggest odontogenic origin. Enlarged submandibular gland to the right of midline, with a hypodense center that may also represent a small focal abscess. 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 Labs Labs: Laboratory Results - last 24 hr 02/26/25 02/27/25 02/27/25 20:57 05:00 10:03 WBC 9.1 RBC 4.04 L Hgb 12.9 L Hct 38.3 L MCV 94.8 MCH 31.9 MCHC 33.7 RDW 13.5 Plt Count 369 MPV 10.3 Immature Gran % (Auto) 0.3 Neut % (Auto) 62.4 Lymph % (Auto) 27.8 [place] % (Auto) 8.2 Eos % (Auto) 0.9 Baso % (Auto) 0.4 Lymph # (Auto) 2.53 [place] # (Auto) 0.8 H Eos # (Auto) 0.1 Baso # (Auto) 0.0 Abs Immat Gran (auto) 0.03 Absolute Neuts (auto) 5.7 Absolute Nucleated RBC 0.000 Nucleated RBC % 0.0 Sodium 143 Potassium 3.0 L Chloride 113 H Carbon Dioxide 23 Anion Gap 7 BUN 14 Creatinine 0.73 Estim Creat Clear Calc 100 Estimated GFR > 60 Glucose 84 Calcium 8.2 L Magnesium 2.0 Total Bilirubin 0.5 AST 21 ALT 21 Alkaline Phosphatase 59 C-Reactive Protein 6.0 H 3.7 H Total Protein 6.0 L Albumin 3.4 L Vancomycin Trough 10.1 Quality VTE Prophylaxis VTE prophylaxis: mechanical ordered
--- NOTE | 2025-02-27 15:05 | PC.NURSE ---
Lovenox not given this am due to potential surgery this afternoon
[2025-02-27] MEDS: ENOXAPARIN 40 MG/0.4 ML SYRINGE SUB-Q (17:20)
--- NOTE | 2025-02-27 19:08 | WPDPN ---
Progress Note: A&P Assessment and Plan (1) Abscess of submandibular gland: Code(s): K11.3 - Abscess of salivary gland Status: Acute (2) Abscess, periapical: Code(s): K04.7 - Periapical abscess without sinus Status: Acute (3) Dental infection: Code(s): K04.7 - Periapical abscess without sinus Status: Acute (4) Abscess or cellulitis, oral soft tissue: Code(s): K12.2 - Cellulitis and abscess of mouth Status: Acute Plan 49 year old male with right submandibular abscess caused by periapical tooth abscess status post intraoral incision and drainage bed side -continue current iv antibiotics -NPO to be discontinued and to return to normal diet -will evaluate the patient tomorrow -Patient needs oral surgeon referral as the periapical tooth abscess will continue to be a source of spread of infection to the floor of mouth Time Spent With Patient Time with patient: less than 15 minutes Subjective Date/time seen: 02/27/25 19:08 Interval history: neck pain and floor of mouth pain Review of Systems Review of Systems: Patient feels better concerning the neck pain and right floor of mouth pain All systems reviewed & are unremarkable except as noted in HPI and below Constitutional: Constitutional: Reports as per HPI ENT: Reports as per HPI Exam Const: General: comfortable and no acute distress HENMT: Face/Nose/Sinus: Normal nares present Mouth: Yes moist mucous membranes Other: swelling in the inner aspect of the gum at the level of Tooth number 30 (right lower first molar) with limited edema and erythema in the neighboring sublingual gland floor of mouth is soft and nontender patient is able to speak and swallow comfortably Neck: Neck: supple Other: mild tenderness at the level submandibular gland Objective Data Vital Signs Vital Signs: Vital Signs - 24 hr 02/26/25 20:00 02/26/25 20:47 02/26/25 20:55 Temperature Pulse Rate 77 81 77 Respiratory Rate 20 20 20 Blood Pressure Pulse Oximetry 98 Oxygen Delivery Room Air Fraction of Inspired Oxygen 21 02/26/25 22:00 02/27/25 02:16 02/27/25 02:24 Temperature 36.0 C L Pulse Rate 70 75 75 Respiratory Rate 18 20 20 Blood Pressure 149/91 H Pulse Oximetry 97 Oxygen Delivery Fraction of Inspired Oxygen 02/27/25 06:00 02/27/25 08:00 02/27/25 08:53 Temperature 36.1 C L Pulse Rate 68 69 Respiratory Rate 18 16 Blood Pressure 147/88 H Pulse Oximetry 99 96 Oxygen Delivery Room Air Fraction of Inspired Oxygen 02/27/25 08:55 02/27/25 09:00 02/27/25 13:17 Temperature Pulse Rate 73 89 Respiratory Rate 16 16 Blood Pressure Pulse Oximetry 96 Oxygen Delivery Room Air Fraction of Inspired Oxygen 02/27/25 13:24 02/27/25 14:00 Temperature 36.3 C L Pulse Rate 83 90 Respiratory Rate 16 16 Blood Pressure 142/82 H Pulse Oximetry 100 Oxygen Delivery Fraction of Inspired Oxygen Intake/Output Intake/Output: Intake & Output 02/24/25 02/25/25 02/26/25 02/27/25 23:59 23:59 23:59 23:59 Intake Total 1050 2900 1540 Balance 1050 2900 1540 Meds/Results Medications: Active Medications Generic Name Dose Route Start Last Admin Trade Name Freq PRN Reason Stop Dose Admin Acetaminophen 650 mg 02/25/25 21:50 02/27/25 08:16 Acetaminophen 325 Mg Tablet PO 650 mg Q4H PRN Administration Mild Pain (1-3) or Fever Albuterol 2.5 mg 02/25/25 22:21 Albuterol Sulfate Neb 2.5 Mg/3 Ml Inh INHALATION Q4HRT PRN Wheezing Albuterol/Ipratropium 3 ml 02/26/25 02:00 02/27/25 13:17 Ipratropium 0.5 Mg/Albuterol Sulfate 2.5 Mg Ampul.Neb 3 Ml INHALATION 3 ml Q6HRT AGUSTIN Administration Enoxaparin Sodium 40 mg 02/26/25 09:00 02/27/25 17:20 Enoxaparin 40 Mg/0.4 Ml Syringe SUB-Q 40 mg DAILY AGUSTIN Administration Sodium Chloride 1,000 mls @ 125 mls/hr 02/25/25 21:50 02/27/25 09:13 Normal Saline Iv IV CONT 125 mls/hr .Q8H AGUSTIN Administration Clindamycin Phosphate 900 mg in 50 mls @ 50 mls/hr 02/26/25 14:00 02/27/25 15:09 Cleocin 900 Mg/D5w 50 Ml IVPB 50 mls/hr Q8H AGUSTIN Administration Vancomycin HCl 1,750 mg in 500 mls @ 250 mls/hr 02/27/25 11:00 02/27/25 11:20 Vancomycin 1,750 Mg/Ns 500 Ml IVPB 250 mls/hr Q12H AGUSTIN Administration Morphine Sulfate 2 mg 02/25/25 21:50 02/27/25 17:19 Morphine Sulfate (*Crx) 2 Mg/Ml Inj IV PUSH 2 mg Q2H PRN Administration Pain Rated 7-10 Nicotine 1 patch 02/26/25 09:00 02/27/25 08:18 Nicotine (*Pbkc) 21 Mg Patch TRANSDERM 1 patch DAILY AGUSTIN Administration Ondansetron HCl 4 mg 02/25/25 21:50 Ondansetron Inj 4 Mg/2 Ml Vial IV PUSH Q4H PRN Nausea Radiology Results: ITS Impressions Face CT 02/25/25 21:16 IMPRESSION: 1.0 x 3.0 cm soft tissue abscess along the medial aspect of the right mandible, with extension into the submandibular/sublingual soft tissues. No definite cortical breakthrough to suggest odontogenic origin. Enlarged submandibular gland to the right of midline, with a hypodense center that may also represent a small focal abscess. 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 Labs Labs: Laboratory Results - last 24 hr 02/26/25 02/27/25 02/27/25 20:57 05:00 10:03 WBC 9.1 RBC 4.04 L Hgb 12.9 L Hct 38.3 L MCV 94.8 MCH 31.9 MCHC 33.7 RDW 13.5 Plt Count 369 MPV 10.3 Immature Gran % (Auto) 0.3 Neut % (Auto) 62.4 Lymph % (Auto) 27.8 [place] % (Auto) 8.2 Eos % (Auto) 0.9 Baso % (Auto) 0.4 Lymph # (Auto) 2.53 [place] # (Auto) 0.8 H Eos # (Auto) 0.1 Baso # (Auto) 0.0 Abs Immat Gran (auto) 0.03 Absolute Neuts (auto) 5.7 Absolute Nucleated RBC 0.000 Nucleated RBC % 0.0 Sodium 143 Potassium 3.0 L Chloride 113 H Carbon Dioxide 23 Anion Gap 7 BUN 14 Creatinine 0.73 Estim Creat Clear Calc 100 Estimated GFR > 60 Glucose 84 Calcium 8.2 L Magnesium 2.0 Total Bilirubin 0.5 AST 21 ALT 21 Alkaline Phosphatase 59 C-Reactive Protein 6.0 H 3.7 H Total Protein 6.0 L Albumin 3.4 L Vancomycin Trough 10.1
[2025-02-27] MEDS: oxyCODONE/ACETAMINOPHEN (*CRX) 5-325 MG TABLET 1 TABLET PO (22:11)
[2025-02-28 02:05] VITALS: PULSE 67; RESP 16
[2025-02-28] MEDS: IPRATROPIUM 0.5 MG/ALBUTEROL SULFATE 2.5 MG AMPUL.NEB 3 ML INHALATION ×2 (02:05→07:47)
[2025-02-28 02:14] VITALS: PULSE 67; RESP 16
[2025-02-28 05:32] VITALS: BP 138/94; PULSE 58; RESP 18; TEMP 37.2; O2SAT 94
[2025-02-28 06:17] LABS: Basophils Absolute Auto 0.1 K/mm3 (0.0-0.1); Basophils Percent Auto 1.5 % (0.2-1.2); Eosinophils Absolute Auto 0.2 K/mm3 (0-0.3); Eosinophils Percent Auto 2.6 % (0-4.4); Hematocrit 39.3 % (42.0-52.0); Hemoglobin 12.8 g/dL (14.0-18.0); Immature Granulocyte Absolute 0.02 K/mm3 (0.00-0.031); Immature Granulocyte Percent A 0.3 % (0-0.5); Lymphocytes Absolute Auto 2.01 K/mm3 (0.9-3.2); Lymphocytes Percent Auto 33.1 % (18.3-44.2); Mean Corpuscular HGB Conc 32.6 g/dl (32-36); Mean Corpuscular Hemoglobin 31.3 pg (26-34); Mean Corpuscular Volume 96.1 fl (80-100); Mean Platelet Volume 9.9 fl (7.4-10.4); Monocytes Absolute Auto 0.6 K/mm3 (0.1-0.6); Neutrophils Absolute Auto 3.2 K/mm3 (1.3-6.7); Neutrophils Percent Auto 52.5 % (45.5-73.1); Platelet Count Result 370 k/mm3 (150-375); Red Blood Count 4.09 M/mm3 (4.6-6.20); Red Cell Distribution Width 13.4 % (11.5-14.5); White Blood Count 6.1 K/mm3 (4.5-10.0)
[2025-02-28] MEDS: CLINDAMYCIN 900 MG/D5W 50 ML 900 MG/50 ML PIGGYBACK 50 MG IVPB (06:31)
[2025-02-28] MEDS: SODIUM CHLORIDE 0.9% IV 1,000 ML 125 ML IV CONT (06:34)
[2025-02-28] MEDS: oxyCODONE/ACETAMINOPHEN (*CRX) 5-325 MG TABLET 1 TABLET PO (06:34)
[2025-02-28 06:36] LABS: Alanine Aminotransferase 19 U/L (6-50); Albumin Level 3.5 g/dL (3.5-5.1); Alkaline Phosphatase 54 U/L (38-126); Anion Gap 8 mmol/L (4-12); Aspartate Amino Transferase 22 U/L (17-59); Bilirubin,Total 0.5 mg/dL (0.2-1.3); Blood Urea Nitrogen 9 mg/dL (9-20); CRP 2.1 mg/dL (<1.0); Calcium 8.1 mg/dL (8.4-10.2); Carbon Dioxide 21 mmol/L (22-30); Chloride 111 mmol/L (98-107); Estimated CRCL calculation 108 ml/min; Estimated Glomerular Filt Rate > 60; Glucose 83 mg/dL (65-110); Magnesium 1.8 mg/dL (1.6-2.3); Potassium 3.2 mmol/L (3.4-5.0); Sodium 140 mmol/L (137-145)
[2025-02-28 07:48] VITALS: PULSE 87; RESP 18; O2SAT 98
[2025-02-28 07:56] VITALS: PULSE 80; RESP 18
[2025-02-28 08:00] VITALS: O2SAT 98
--- NOTE | 2025-02-28 08:12 | WPDPN ---
Progress Note: A&P Assessment and Plan (1) Abscess of submandibular gland: Code(s): K11.3 - Abscess of salivary gland Status: Acute (2) Abscess, periapical: Code(s): K04.7 - Periapical abscess without sinus Status: Acute (3) Dental infection: Code(s): K04.7 - Periapical abscess without sinus Status: Acute (4) Abscess or cellulitis, oral soft tissue: Code(s): K12.2 - Cellulitis and abscess of mouth Status: Acute Plan 41 year with periapical abscess in tooth 30 complicated with submandibular swelling 1-Discharge the patient home 2-Discharge instruction continue oral hygiene 3-Discharge medication: Either Clindamycin 300 mg every 6 hours for 10 days Or Moxifloxacin 400 mg daily for 10 days( [place] patient [place] no medical insurance and Convenience of dosing ) 4-Over the counter pain medication as needed 5-Patient needs to be evaluated by Oral surgeon as soon as possible as the the infected tooth will continue to be the source of infection that will spread to the neck i Have down some suggested neighboring oral surgeon offices 1- [facility] [address] [place] [address] Telephone 2- [facility] [address] [facility], [address] [place] [address] [facility] Phone [phone] Time Spent With Patient Time with patient: less than 15 minutes Subjective Date/time seen: 02/28/25 08:12 Interval history: mild pain in the right lower jaw Review of Systems Review of Systems: Patient feels better concerning the neck pain and right floor of mouth pain All systems reviewed & are unremarkable except as noted in HPI and below Constitutional: Constitutional: Reports as per HPI ENT: Reports as per HPI Exam Const: General: comfortable and no acute distress HENMT: Face/Nose/Sinus: Normal nares present Mouth: Yes moist mucous membranes Other: mild swelling in the inner aspect of the gum at the level of Tooth number 30 (right lower first molar) with no edema or erythema in the neighboring sublingual gland floor of mouth is soft and nontender patient is able to speak and swallow comfortably Neck: Neck: supple Other: no tenderness at the level submandibular gland Objective Data Vital Signs Vital Signs: Vital Signs - 24 hr 02/27/25 08:53 02/27/25 08:55 02/27/25 09:00 Temperature Pulse Rate 69 73 Respiratory Rate 16 16 Blood Pressure Pulse Oximetry 96 Oxygen Delivery Room Air 02/27/25 13:17 02/27/25 13:24 02/27/25 14:00 Temperature 36.3 C L Pulse Rate 89 83 90 Respiratory Rate 16 16 16 Blood Pressure 142/82 H Pulse Oximetry 100 Oxygen Delivery 02/27/25 20:06 02/27/25 20:37 02/27/25 20:39 Temperature 36.9 C Pulse Rate 89 81 Respiratory Rate 16 16 Blood Pressure 125/79 Pulse Oximetry 97 97 Oxygen Delivery Room Air 02/27/25 20:44 02/28/25 02:05 02/28/25 02:14 Temperature Pulse Rate 83 67 67 Respiratory Rate 16 16 16 Blood Pressure Pulse Oximetry Oxygen Delivery 02/28/25 05:32 02/28/25 07:48 02/28/25 07:48 Temperature 37.2 C Pulse Rate 58 L 87 Respiratory Rate 18 18 Blood Pressure 138/94 H Pulse Oximetry 94 98 Oxygen Delivery Room Air 02/28/25 07:56 02/28/25 08:00 Temperature Pulse Rate 80 Respiratory Rate 18 Blood Pressure Pulse Oximetry 98 Oxygen Delivery Room Air Intake/Output Intake/Output: Intake & Output 02/25/25 02/26/25 02/27/25 02/28/25 23:59 23:59 23:59 23:59 Intake Total 1050 2900 3140 2050 Balance 1050 2900 3140 2050 Meds/Results Medications: Active Medications Generic Name Dose Route Start Last Admin Trade Name Freq PRN Reason Stop Dose Admin Acetaminophen 650 mg 02/25/25 21:50 02/27/25 08:16 Acetaminophen 325 Mg Tablet PO 650 mg Q4H PRN Administration Mild Pain (1-3) or Fever Albuterol 2.5 mg 02/25/25 22:21 Albuterol Sulfate Neb 2.5 Mg/3 Ml Inh INHALATION Q4HRT PRN Wheezing Albuterol/Ipratropium 3 ml 02/26/25 02:00 02/28/25 07:47 Ipratropium 0.5 Mg/Albuterol Sulfate 2.5 Mg Ampul.Neb 3 Ml INHALATION 3 ml Q6HRT AGUSTIN Administration Enoxaparin Sodium 40 mg 02/26/25 09:00 02/27/25 17:20 Enoxaparin 40 Mg/0.4 Ml Syringe SUB-Q 40 mg DAILY AGUSTIN Administration Sodium Chloride 1,000 mls @ 125 mls/hr 02/25/25 21:50 02/28/25 06:34 Normal Saline Iv IV CONT 125 mls/hr .Q8H AGUSTIN Administration Clindamycin Phosphate 900 mg in 50 mls @ 50 mls/hr 02/26/25 14:00 02/28/25 06:31 Cleocin 900 Mg/D5w 50 Ml IVPB 50 mls/hr Q8H AGUSTIN Administration Vancomycin HCl 1,750 mg in 500 mls @ 250 mls/hr 02/27/25 11:00 02/28/25 01:21 Vancomycin 1,750 Mg/Ns 500 Ml IVPB Infused Q12H AGUSTIN Infusion Morphine Sulfate 2 mg 02/25/25 21:50 02/27/25 17:19 Morphine Sulfate (*Crx) 2 Mg/Ml Inj IV PUSH 2 mg Q2H PRN Administration Pain Rated 7-10 IF NPO Nicotine 1 patch 02/26/25 09:00 02/27/25 08:18 Nicotine (*Pbkc) 21 Mg Patch TRANSDERM 1 patch DAILY AGUSTIN Administration Ondansetron HCl 4 mg 02/25/25 21:50 Ondansetron Inj 4 Mg/2 Ml Vial IV PUSH Q4H PRN Nausea Oxycodone/Acetaminophen 1 tab 02/27/25 19:59 Oxycodone/Acetaminophen (*Crx) 10-325 Mg Tablet PO Q4H PRN Pain Rated 7-10 Oxycodone/Acetaminophen 1 tablet 02/27/25 19:59 02/28/25 06:34 Oxycodone/Acetaminophen (*Crx) 5-325 Mg Tablet PO 1 tablet Q4H PRN Administration Pain Rated 4-6 Radiology Results: ITS Impressions Face CT 02/25/25 21:16 IMPRESSION: 1.0 x 3.0 cm soft tissue abscess along the medial aspect of the right mandible, with extension into the submandibular/sublingual soft tissues. No definite cortical breakthrough to suggest odontogenic origin. Enlarged submandibular gland to the right of midline, with a hypodense center that may also represent a small focal abscess. 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 Labs Labs: Laboratory Results - last 24 hr 02/27/25 02/28/25 10:03 05:14 WBC 6.1 RBC 4.09 L Hgb 12.8 L Hct 39.3 L MCV 96.1 MCH 31.3 MCHC 32.6 RDW 13.4 Plt Count 370 MPV 9.9 Immature Gran % (Auto) 0.3 Neut % (Auto) 52.5 Lymph % (Auto) 33.1 [place] % (Auto) 10.0 H Eos % (Auto) 2.6 Baso % (Auto) 1.5 H Lymph # (Auto) 2.01 [place] # (Auto) 0.6 Eos # (Auto) 0.2 Baso # (Auto) 0.1 Abs Immat Gran (auto) 0.02 Absolute Neuts (auto) 3.2 Absolute Nucleated RBC 0.000 Nucleated RBC % 0.0 Sodium 140 Potassium 3.2 L Chloride 111 H Carbon Dioxide 21 L Anion Gap 8 BUN 9 D Creatinine 0.67 L Estim Creat Clear Calc 108 Estimated GFR > 60 Glucose 83 Calcium 8.1 L Magnesium 1.8 Total Bilirubin 0.5 AST 22 ALT 19 Alkaline Phosphatase 54 C-Reactive Protein 2.1 H Total Protein 6.0 L Albumin 3.5 Vancomycin Trough 10.1
[2025-02-28] MEDS: NICOTINE (*PBKC) 21 MG PATCH 1 PATCH TRANSDERM (08:33)
[2025-02-28] MEDS: ENOXAPARIN 40 MG/0.4 ML SYRINGE SUB-Q (08:34)
[2025-02-28] MEDS: MOXIFLOXACIN HCL 400 MG TABLET PO (11:59)
[2025-02-28] MEDS: DOXYCYCLINE HYCLATE 100 MG TABLET PO (11:59)
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
== END 2025-02-28 14:56 | disposition home or self-care (01) | DRG 113 ==
LOC: ANHED 21:51 → ANH3MEDSUR 22:15
PROVIDERS: Nurse Practitioner Adult Health; Otolaryngology Otolaryngology/Facial Plastic Surgery; Admitting Provider Internal Medicine; Emergency Provider Emergency Medicine; Visit Provider General Practice
DX: K11.3 Abscess of salivary gland (principal); K12.2 Cellulitis and abscess of mouth; K04.7 Periapical abscess without sinus; J43.9 Emphysema, unspecified; B96.3 Hemophilus influenzae [H. influenzae] as the cause of diseases classified elsewhere; F17.210 Nicotine dependence, cigarettes, uncomplicated; S03 Dislocation and sprain of joints and ligaments of head; V89.2XXS Person injured in unspecified motor-vehicle accident, traffic, sequela
CPT/HCPCS: 36415; 70487; 80048; 80053; 80202; 83605; 83735; 85025; 86140; 87040; 87070; 87075; 87205; 94640; 96361; 99285; A9270; G0378; J1100; J1650; J2004; J2270; J3370; J7030; Q9967